=== PATIENT | female | born 1995 | race Caucasian/White ===

== ENCOUNTER 2017-10-07 14:10 | Emergency (ER) | payer BC, SELFPAY ==
[2017-10-07 14:12] VITALS: BP 139/85; PULSE 78; RESP 16; TEMP 36.8; O2SAT 94; BMI 48.4
--- NOTE | 2017-10-07 15:25 | ED.VISSUMM ---
- ER Visit Summary Date of Service: 10/07/17 Chief Complaint: I think I have a concussion History of Present Illness: The patient is a 21 F who bumped her head on the corner of her metal bed 2 days ago. She has had intermittent headaches and light sensitivity since then. She did not lose consciousness. She has not felt confused. She has not vomited. Denies any other injuries. Physical Examination: No sign of head trauma. No neck tenderness. Pupils equal and reactive. Neurologic exam completely normal. Test Results: None performed Emergency Department Course and Treatment: She looks well. Neurologic exam is normal. It sounds like she does have a mild concussion. Return precautions were explained but at this point we both feel it is safe to avoid a CT scan. Treatment Plan: [id number] meds and follow-up as needed Disposition: Home in stable condition Impression: Initial encounter concussion, mild without loss of consciousness This note was generated with Experiment dictation software. It may contain incorrect words, spelling, and punctuation that were not noted in review of the chart prior to signing ED Disposition - Plan for ED Patient: Chief Complaint: Head Injury Instructions: ED Concussion Referrals: Venancio Doctor,Out of [Primary Care Provider] -
[2017-10-07 15:39] VITALS: BP 142/78; PULSE 83; RESP 16; O2SAT 98
== END 2017-10-07 16:13 | disposition home or self-care (01) ==
LOC: ED 16:07
PROVIDERS: Emergency Provider Emergency Medicine
DX: S06.0X0A Concussion without loss of consciousness, initial encounter (principal); R40.2410 Glasgow coma scale score 13-15, unspecified time; W22.8XXA Striking against or struck by other objects, initial encounter; Y93.9 Activity, unspecified; Y92.9 Unspecified place or not applicable
CPT/HCPCS: 99282